=== PATIENT | male | born 1945 | race Caucasian/White ===

== ENCOUNTER 2022-11-26 14:05 | Outpatient (CLI) | payer MEDICARE, OTHER | END 2022-11-26 14:06 | disposition home or self-care (01) | LOC: CSHRAD 14:05 | PROVIDERS: ATTEND Anesthesiology Pain Medicine | DX: Z01.818 Encounter for other preprocedural examination (principal); Z95.0 Presence of cardiac pacemaker | CPT/HCPCS: 71046 ==

== ENCOUNTER 2022-11-28 08:17 | Outpatient (CLI) | payer MEDICARE, OTHER | END 2022-11-28 08:18 | disposition home or self-care (01) | LOC: CSHSPEC 08:17 | PROVIDERS: ATTEND Anesthesiology Pain Medicine | DX: M48.062 Spinal stenosis, lumbar region with neurogenic claudication (principal); Z95.0 Presence of cardiac pacemaker; M47.816 Spondylosis without myelopathy or radiculopathy, lumbar region | CPT/HCPCS: 72148 ==

== ENCOUNTER 2023-03-04 09:53 | Outpatient (CLI) | payer MEDICARE, OTHER | END 2023-03-04 09:54 | disposition home or self-care (01) | LOC: CSHSPEC 09:53 | PROVIDERS: ATTEND Podiatrist Foot & Ankle Surgery | DX: M86.9 Osteomyelitis, unspecified (principal) ==

== ENCOUNTER 2024-01-27 12:41 | Outpatient (CLI) | payer MEDICARE, OTHER | END 2024-01-27 12:42 | disposition home or self-care (01) | LOC: CSHRAD 12:41 | PROVIDERS: ATTEND Specialist | DX: Z01.818 Encounter for other preprocedural examination (principal); M54.14 Radiculopathy, thoracic region | CPT/HCPCS: 71045 ==

== ENCOUNTER 2024-01-28 12:38 | Outpatient (CLI) | payer MEDICARE, OTHER | END 2024-01-28 12:39 | disposition home or self-care (01) | LOC: CSHSPEC 12:38 | PROVIDERS: ATTEND Specialist | DX: M47.24 Other spondylosis with radiculopathy, thoracic region (principal) | CPT/HCPCS: 72146 ==